=== PATIENT | male | born 1985 | race American Indian/Alaskan Native ===

== ENCOUNTER 2017-09-06 00:46 | Emergency (ER) | payer SELFPAY ==
[2017-09-06 00:51] VITALS: BP 136/87
--- NOTE | 2017-09-06 09:32 | XRay Report ---
RIGHT FOOT, 2 VIEWS History: Pain after fall. Findings: Limited views are presented. A moderate hallux valgus deformity is identified. There is been previous internal fixation of a calcaneus fracture. There are mild degenerative changes in the midfoot and first metatarsophalangeal joint. No acute injury or bony destruction is appreciated. Impression: Chronic findings as described. No acute injury appreciated on 2 views.
== END 2017-09-06 05:30 | disposition left against medical advice (07) ==
LOC: ED 00:46
DX: M79.671 Pain in right foot (principal); R50.9 Fever, unspecified; Z53.21 Procedure and treatment not carried out due to patient leaving prior to being seen by health care provider